=== PATIENT | male | born 1995 | race Caucasian/White ===

== ENCOUNTER 2021-09-18 01:27 | Emergency (ER) | payer SELFPAY ==
[2021-09-18 01:36] VITALS: BP 156/100; PULSE 90; RESP 16; TEMP 36.1; O2SAT 100; BMI 24.4
--- NOTE | 2021-09-18 02:06 | XRR_ITS ---
PROCEDURE INFORMATION: Exam: XR Lumbosacral Spine Exam date and time: 09/18/2021 2:06 AM Age: 26 years old Clinical indication: Low back pain TECHNIQUE: Imaging protocol: XR of the lumbosacral spine. Views: 2 or 3 views. COMPARISON: No relevant prior studies available. FINDINGS: Bones/joints: Normal. No acute fracture. Normal alignment. Soft tissues: Unremarkable. XR/XR lumbar spine 2-3V* [id number] IMPRESSION: No acute findings. Radiation Dose CTDIVOL = (mGy): DLP = (mGy-cm)
--- NOTE | 2021-09-18 02:12 | W.ED.BACK ---
HPI - Back Pain/Injury General: Chief Complaint: Back Pain/Injury Stated Complaint: Back Knee and elbows Hurt Time Seen by Provider: 09/18/21 01:42 History of Present Illness: HPI Narrative: 26-year-old male here with an exacerbation of chronic back pain. He states for the last 3 days has not been able to sleep due to his back pain. The pain makes his legs restless, so yes to get up every few minutes and walk. His girlfriend gives me a detailed history of how they want to do surgery on his back at age 10 because of a disc problem. The patient also states his elbows and legs hurt as well. He denies any fever or recent illness otherwise. He took a couple of shots to try and go to sleep, but that this did not help. MD elicited complaint: back pain Pertinent past history: prior back pain Onset (ago): year(s) Timing: intermittent and progressively worsening Similar Symptoms Previously: Yes Quality: stabbing and aching Location: lumbar spine Radiation: left upper leg Exacerbating factors: other Relieving factors: none Associated symptoms: Reports tingling/numbness/burning; Deny abdominal pain, chills, change in bowel habits, difficulty walking, fecal incontinence, fever(s), hematuria or nausea Treatments prior to arrival: heat therapy and other medications (Marijuana, alcohol) Review of Systems Const: Denies: fever(s) or chills GI: Denies: abdominal pain, nausea, fecal incontinence or change in bowel habits : Denies: hematuria Neuro: Denies: difficulty walking Physical Exam Const: COMMON NORMALS: patient oriented x3 GENERAL APPEARANCE: cooperative, lethargic and odor of alcohol detected ORIENTATION/CONSCIOUSNESS: Yes lethargic HENMT: COMMON NORMALS: normocephalic HEAD & SCALP: normocephalic Chest: COMMONS NORMALS: normal inspection of the chest Resp: COMMON NORMALS: normal respiratory effort, No use of accessory muscles and clear to auscultation bilaterally AUSCULTATION: clear to auscultation bilaterally Cardio: COMMON NORMALS: regular rate and regular rhythm RATE: regular rate RHYTHM: regular rhythm GI: INSPECTION: Yes normal to inspection : BLADDER/KIDNEY EXAM: No CVA tenderness Back/Pelvis: GENERAL BACK: No CVA tenderness OTHER: Examination lumbar spine reveals tenderness over the left paraspinal musculature. There is no deformity. There is no real midline tenderness. Straight leg raise test is negative for radicular pain in the legs bilaterally. Sensation is grossly intact. Strength is grossly intact. Neuro: COMMON NORMALS: patient oriented x3 SENSORIUM/ORIENTATION: Yes lethargic Course Vital Signs: Vital signs: Vital Signs Temperature 96.9 F L 09/18/21 01:36 Pulse Rate 82 09/18/21 02:41 Respiratory Rate 16 09/18/21 02:41 Blood Pressure 114/80 09/18/21 02:41 Pulse Oximetry 99 09/18/21 02:41 MDM - Back Pain/Injury MDM Narrative: Medical decision making narrative: No red flag symptoms or signs on exam. His lumbar spine x-ray appears essentially normal, as do his SI joints. He will be allowed discharge. Case management referral has been made for PCP follow-up. Discharge Plan Discharge Patient Disposition: Home Clinical Impression: Chronic back pain Qualifiers: Back pain location: low back pain Back pain laterality: unspecified Sciatica presence: without sciatica Qualified Code(s): M54.50 - Low back pain, unspecified Condition: Stable Prescriptions: New ketorolac 10 mg tablet 10 mg PO TID PRN (Reason: pain) Qty: 10 RF: 0 Medrol (Brady) 4 mg tablets,dose pack See Rx Instructions .ROUTE .COMPLEX Qty: 21 RF: 0 Discharge Orders: Discharge ED (Routine); Ordered 09/18/21 Ordered By: Leroy Ramos Referrals: Ru Jaime FNP [Primary Care Provider] - Patient Instructions: Back Pain (ED) Activity Restrictions/Additional Instructions: A case management referral has been placed for you to follow-up with a primary care practitioner. Further treatment may be needed. Return for fever, loss of sensation to your genital area or groin, loss of control of your bowel or bladder function any other concerning symptoms. Medications as directed. You should take the steroid pack until gone according to package instructions. The other medication you may take as needed for pain. Coding Level of Care Code ED Water Conservationist for Gurpreet Fwd Exam Detailed
[2021-09-18 02:26] VITALS: RESP 18; O2SAT 98
[2021-09-18] MEDS: oxyCODONE-APAP 5-325 mg Tablet 1 TAB PO (02:26)
[2021-09-18] MEDS: ketorolac 30 mg/mL INJ IM (02:27)
[2021-09-18 02:41] VITALS: BP 114/80; PULSE 82; RESP 16; O2SAT 99
--- NOTE | 2021-09-25 13:55 | DCPLANNER ---
executive sales manager had message to speak with patient about getting established with a primary care physician. executive sales manager called phone number [phone], unable to speak with patient at this time. executive sales manager did leave a voicemail for patient to return piano case and bench assembler phone call.
== END 2021-09-18 02:40 | disposition home or self-care (01) ==
PROVIDERS: Emergency Provider Emergency Medicine; PCP Nurse Practitioner Family
DX: M54.50 Low back pain, unspecified (principal)
CPT/HCPCS: 72100; 96372; 99283; J1885

== ENCOUNTER → 2021-10-03 13:35 | Outpatient (BNVA) | payer SELFPAY | PROVIDERS: PCP Nurse Practitioner Family; Referring Provider Registered Nurse; Visit Provider Physician Assistant | DX: M54.50 Low back pain, unspecified (principal); G89.29 Other chronic pain | CPT/HCPCS: 72110 ==

== ENCOUNTER → 2022-08-29 09:22 | Outpatient (BNVA) | payer OTHER, SELFPAY | PROVIDERS: PCP Family Medicine; Visit Provider Registered Nurse | DX: Z02.6 Encounter for examination for insurance purposes (principal) | CPT/HCPCS: 80307 ==

== ENCOUNTER 2024-12-20 05:23 | Emergency (ER) | payer SELFPAY ==
[2024-12-20 05:25] VITALS: BP 165/81; PULSE 107; RESP 18; TEMP 36.7; BMI 33.9
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
[2024-12-20 07:37] VITALS: BP 158/90; PULSE 85; O2SAT 98
== END 2024-12-20 07:38 | disposition home or self-care (01) ==
PROVIDERS: Emergency Provider Emergency Medicine; PCP Family Medicine
DX: S09.8XXA Other specified injuries of head, initial encounter (principal); Y04.8XXA Assault by other bodily force, initial encounter
CPT/HCPCS: 70450; 70486; 71045; 72125; 99284